=== PATIENT | male | born 1965 | race American Indian/Alaskan Native ===

== ENCOUNTER 2022-09-11 07:45 | Emergency (ER) | payer OTHER ==
[~2022-09-11] VITALS: Ht 167.6 cm; Wt 83.9 kg
[~2022-09-11 07:45] MED LIST: CLINDAMYCIN HC150 MG PO; NORCO 5-325 TA1 EACH PO
[2022-09-11] MEDS ORDERED: BAYER CHEWABLE81 MG PO (08:31)
== END 2022-09-11 09:09 | disposition home or self-care (01) ==
LOC: ED 07:45
DX: S61.211A Laceration without foreign body of left index finger without damage to nail, initial encounter (principal); Z23 Encounter for immunization; Z79.82 Long term (current) use of aspirin; W26.0XXA Contact with knife, initial encounter
CPT/HCPCS: 90471; 90715; 99282-25

== ENCOUNTER 2024-05-11 10:41 | Day surgery (SDC) | payer BC, OTHER ==
[~2024-05-11] VITALS: Ht 177.8 cm; Wt 120.5 kg
--- NOTE | ~2024-05-11 | OR ---
[facility] [address], [place] [address] Draft DATE OF OPERATION: 05/11/2024 SURGEON: Yary Guerra MD PREOPERATIVE DIAGNOSIS: Colon screening. POSTOPERATIVE DIAGNOSES: 1. Normal colon to cecum. 2. Possible sleep apnea physiology. PROCEDURE: Total colonoscopy to cecum. ANESTHESIA: Intravenous sedation; fentanyl 100 mcg and Versed 4 mg. INDICATION: This 58-year-old [place] man is a patient of Dr. Nicholas Blackmon of [facility]. He has never had colon evaluation in the past. He has no current symptoms of bleeding, diarrhea, or constipation and no family history of colon cancer. He is admitted at this time to undergo colonoscopy for screening. He understands the risk of bleeding, infection, and perforation. Understanding these risks, he wished to proceed. FINDINGS: Given his obesity and findings, well sedated, he is possible to have a sleep apnea issue, though it is not certain. He tolerated the procedure well overall. The prep was excellent. Complete colonoscopy was undertaken of the cecum without problem. He had no sign of polyps, diverticular formation, colitis, or cancer. DESCRIPTION OF PROCEDURE: The patient was brought to the endoscopy suite and placed in the lateral decubitus position, given intravenous sedation to the point of slurred speech and nystagmus. Digital rectal examination was normal. Full cardiopulmonary monitoring was maintained. An Olympus video colonoscope was passed in the rectum and manipulated throughout the colon. He ultimately was noted to have decreasing O2 saturations, which responded on their own and with some airway support. He never had saturations below 84%, however. This physiology was suggestive of sleep apnea. The scope was ultimately advanced to the cecum. The ileocecal valve and appendiceal PATIENT NAME: DUDLEY MCCRACKEN OPERATIVE REPORT DATE OF : 69 REPORT #: [id number] PHYSICIAN: YARY GUERRA MD PCP: LORENZA PEREZ REPORT IS CONFIDENTIAL AND NOT TO BE RELEASED WITHOUT AUTHORIZATION [facility] [address], [place] [address] Draft orifice were normal. The scope was withdrawn from that point and examination throughout showed no sign of polyps, diverticular formation, colitis, or cancer. Retroflexed view of the rectum was normal. Scope was removed and the patient was taken to the recovery room in good condition. CONCLUDING DIAGNOSES: 1. Normal colon to cecum. 2. Possible sleep apnea physiology. PLAN: Recommend repeat colonoscopy in 10 years. Recommend he follow up with his primary provider, Dr. Blackmon for consideration of sleep evaluation. MD FIORDALIZA Bergman/VINNY /[id number] cc: Dr. Nicholas Blackmon of [facility] Copies: ~ PATIENT NAME: DUDLEY MCCRACKEN OPERATIVE REPORT DATE OF : 69 REPORT #: [id number] PHYSICIAN: YARY GUERRA MD PCP: LORENZA PEREZ REPORT IS CONFIDENTIAL AND NOT TO BE RELEASED WITHOUT AUTHORIZATION
[~2024-05-11 10:41] MED LIST changes: +BAYER CHEWABLE81 MG PO; +DICLOFENAC SODI75 MG PO; +HYDROCODON-ACE1 EA11 PO; +IBLOOD GLUCOSE TEST STRIP 1 EA TEST VI PRN; +LACTATED RINGER'S 1,000 ML IV SCH; +LIDOCAINE HCL 1% 5 ML SDV INJ ONE; +MIDAZOLAM HCL 5 MG/5 ML VIAL IV PRN; +ZYRTEC10 M3 PO; +fentaNYL citrate 100 MCG/2 ML VIAL IV PRN
[2024-05-11] MEDS ORDERED: fentaNYL citrate 100 MCG/2 ML VIAL ONE (11:00)
[2024-05-11] MEDS ORDERED: MIDAZOLAM HCL 5 MG/5 ML VIAL ONE (11:00)
[2024-05-11 11:09] VITALS: BP 146/70
--- NOTE | 2024-05-11 12:13 | NUR ---
05/11/24 1213 Pam Mcgarry 1208-PATIENT ARRIVED TO PACU ON 2L NC 90% RR EVEN. PATIENT AWAKE LAYING LEFT LATERAL DENIES PAIN OR NAUSEA. ABDOMEN ROUND AND SOFT. IVF INFUSING. PATIENT HAS STOP BANG SCORE OF 6 WILL SEND SLEEP APNEA INFO. 1213-DR. GUERRA AT BEDSIDE TALKING TO PATIENT. 2L NC 92% RR EVEN
[2024-05-11 12:40] VITALS: BP 129/83
== END 2024-05-11 12:45 | disposition home or self-care (01) ==
LOC: OPS 10:41 → DS 10:42 → OPS 12:00 → DS 14:00 → OPS 14:00
PROVIDERS: ATTEND Surgery
PROC: 0DJD8ZZ Inspection of Lower Intestinal Tract, Via Natural or Artificial Opening Endoscopic (ICD-10-PCS; principal; 2024-05-11 12:00)
DX: Z12.11 Encounter for screening for malignant neoplasm of colon (principal); E66.9 Obesity, unspecified; Z90.49 Acquired absence of other specified parts of digestive tract
CPT/HCPCS: 99153; G0500; J2250; J3010; J7121